=== PATIENT | male | born 1990 | race African-American/Black ===

== ENCOUNTER → 2024-11-06 10:20 | Outpatient (CLI) | payer OTHER, SELFPAY ==
[2024-11-06 11:52] LABS: Urine Chlamydia NOT DETECTED; Urine N gonorrhoeae NOT DETECTED
== END ==
PROVIDERS: Visit Provider Nurse Practitioner Family
DX: R36.9 Urethral discharge, unspecified (principal)
CPT/HCPCS: 87491; 87591